=== PATIENT | male | born 1985 | race Caucasian/White ===

== ENCOUNTER 2017-11-20 07:48 | Emergency (ER) | payer MEDICAID ==
[2017-11-20] MEDS: ONDANSETRON (ODT) 4 MG TAB ODT (08:26)
[2017-11-20] MEDS: ACETAMINOPHEN 500 MG TAB PO (08:26)
== END 2017-11-20 11:14 | disposition home or self-care (01) ==
LOC: FTE 07:48
DX: J02.9 Acute pharyngitis, unspecified (principal); R11.10 Vomiting, unspecified
CPT/HCPCS: 70360; 87400; 87880; 99284-25

== ENCOUNTER 2018-07-01 18:59 | Emergency (ER) | payer MEDICAID ==
[2018-07-01 19:26] LABS: ADD MAN DIFF? NO
[2018-07-01 19:31] LABS: WHITE BLOOD COUNT 11.9 10^3/ul (4.8-10.8)
[2018-07-01 19:31] LABS: BASOPHIL # 0.1 10^3/ul (0.0-0.1); BASOPHILS % 0.7 % (0.0-2.0); EOSINOPHILS # 0.1 10^3/ul (0.0-0.5); EOSINOPHILS % 1.2 % (0.0-7.0); HEMATOCRIT 46.7 % (42.0-52.0); HEMOGLOBIN 15.9 g/dl (14.0-18.0); LYMPHOCYTES # 3.8 10^3/ul (0.8-2.9); MEAN CORPUSCULAR HEMOGLOBIN 32.1 pg (29.0-33.0); MEAN CORPUSCULAR VOLUME 94.2 fl (82.0-101.0); MEAN PLATELET VOLUME 9.7 fl (7.4-10.4); MONOCYTE # 0.9 10^3/ul (0.3-0.9); MONOCYTES % 7.6 % (0.0-11.0); NEUTROPHIL # 6.9 10^3/ul (1.6-7.5); NEUTROPHILS % 57.7 % (39.0-77.0); PLATELET COUNT 212 10^3/UL (140-415); RED BLOOD COUNT 4.96 10^6/ul (4.70-6.10); RED CELL DISTRIBUTION WIDTH 13.1 % (11.5-14.5)
[2018-07-01] MEDS: ALTEPLASE (tPA) 1 MG/ML BOLUS SYG IV* (19:48)
[2018-07-01 19:49] LABS: ANION GAP 13 (8-16); BLOOD UREA NITROGEN 11 mg/dl (7-20); CARBON DIOXIDE 28 mmol/L (21-31); CHLORIDE 103 mmol/L (97-110); CHOL/HDL RATIO 3.2 RATIO; CHOLESTEROL 182 mg/dl (100-200); CREATININE 0.71 mg/dl (0.61-1.24); GLUCOSE 138 mg/dl (70-220); HDL CHOLESTEROL 56 mg/dl (28-63); LDL CHOLESTEROL,CALCULATED 95 mg/dl; POTASSIUM 3.5 mmol/L (3.5-5.1); SODIUM 140 mmol/L (135-144); TRIGLYCERIDES 155 mg/dl (0-149)
[2018-07-01] MEDS: ALTEPLASE 100 MG INJ IV* ×2 (19:49→19:51)
[2018-07-01 19:50] LABS: ETHANOL < 10.0 mg/dl; INR 0.89; PROTIME 12.1 Sec (11.9-14.9); PT RATIO 0.9
[2018-07-01 19:50] LABS: HEMOGLOBIN A1C 5.3 % (0-5.9)
[2018-07-01 19:51] LABS: PARTIAL THROMBOPLASTIN TIME 27.1 Sec (25.0-35.0)
[2018-07-01] MEDS ORDERED: LABETALOL HCL 20MG INJ IV (20:00)
[2018-07-01 20:01] LABS: CK-MB 0.88 ng/ml (0.0-2.4); TROPONIN-I 0.022 ng/ml (0.000-0.120)
[2018-07-01 20:09] LABS: CK INDEX 0.5; CREATINE KINASE 167 IU/L (23-200)
[2018-07-01] MEDS: SOD CHLORIDE 0.9% 50 ML IV (20:50)
[2018-07-01] MEDS: ASPIRIN 300 MG SUPP PR (20:53)
== END 2018-07-01 21:00 | disposition short-term general hospital (02) ==
LOC: E/R 18:59
DX: I63.9 Cerebral infarction, unspecified (principal); I69.320 Aphasia following cerebral infarction; I10 Essential (primary) hypertension; R40.2142 Coma scale, eyes open, spontaneous, at arrival to emergency department; R40.2242 Coma scale, best verbal response, confused conversation, at arrival to emergency department; R40.2352 Coma scale, best motor response, localizes pain, at arrival to emergency department
CPT/HCPCS: 36415; 70450; 71045; 80048; 80061; 80307; 82550; 82553; 82962; 83036; 84484; 85025; 85610; 85730; 93005; 99291-25